=== PATIENT | male | born 1965 | race Caucasian/White ===

== ENCOUNTER 2017-05-05 09:05 | Emergency (ER) | payer OTHER ==
[~2017-05-05] VITALS: Ht 177.8 cm; Wt 86.4 kg
[2017-05-05 09:27] VITALS: BP 138/86; PULSE 65; RESP 16; O2SAT 96
[2017-05-05] MEDS ORDERED: Lidocaine-Epi-Tetracaine Solution 3 mL Syringe TOPICAL ONE (09:40)
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
[2017-05-05] MEDS ORDERED: TdaP Vaccine 0.5 mL Inj IM ONE (10:05)
[2017-05-05] MEDS ORDERED: Amoxicillin-Clav 875-125 mg Tablet PO ONE (10:10)
--- NOTE | 2017-05-05 10:57 | DRSVH ---
PROCEDURE: X-RAY LEFT ELBOW COMPLETE, MINIMUM THREE VIEWS ([id number]) INDICATIONS: fell onto elbow unable to fully extend TECHNIQUE: 3 views of the elbow were acquired. COMPARISON: None. FINDINGS: Bones: No dislocations. No suspicious bony lesions. There is a mildly impacted fracture involving the radial head, best seen along its lateral border on one of the 3 views Soft tissues: Moderate elbow joint effusion. No suspicious soft tissue calcifications. IMPRESSION: Mildly impacted and angulated radial head fracture accurately seen on one of the 3 views. . Dictated by: Vinay Howard M.D. on 05/05/2017 at 10:54 Approved by: Vinay Howard M.D. on 05/05/2017 at 10:55
[2017-05-05] MEDS ORDERED: BACI28.4 TP (11:20)
[2017-05-05] MEDS ORDERED: LACT1CAP65 PO (11:20)
[2017-05-05] MEDS ORDERED: AMOX-366 PO (11:20)
[2017-05-05 12:01] VITALS: BP 120/86; PULSE 63; RESP 20; O2SAT 99
== END 2017-05-05 12:02 | disposition home or self-care (01) ==
LOC: SED 09:05
DX: S52.122A Displaced fracture of head of left radius, initial encounter for closed fracture (principal); S81.852A Open bite, left lower leg, initial encounter; W54.0XXA Bitten by dog, initial encounter; V18.4XXA Pedal cycle driver injured in noncollision transport accident in traffic accident, initial encounter; Y93.55 Activity, bike riding; Y99.8 Other external cause status; Y92.410 Unspecified street and highway as the place of occurrence of the external cause; Z23 Encounter for immunization; Z98.890 Other specified postprocedural states; Z88.2 Allergy status to sulfonamides